=== PATIENT | male | born 1970 | race Caucasian/White ===

== ENCOUNTER 2024-07-24 15:00 | Inpatient (IN) ==
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
[2024-07-24] MEDS ORDERED: fentaNYL citrate PF 100 MCG/2 ML VIAL ONE ×2 (18:40→19:52)
[2024-07-24] MEDS ORDERED: MIDAZOLAM HCL 1 MG/ML 2ML VIAL ONE (18:40)
--- NOTE | 2024-07-24 18:41 | Anesthesiology Consultation ---
Date of Service July 24, 2024 Assessment & Plan Chart Review Chart Review: Acceptable Risk for Surgery Consults Requested none History Surgery Operation Date: 07/24/24 13:50 Proposed Procedures p Right Knee Incision and Debridement - Raman Grady DO Height/Weight Height: 5 ft 10 in Weight: 130 kg Allergies Allergy/AdvReac Type Severity Reaction Status Date / Time pollen extracts Allergy Mild seasonal Verified 07/24/24 17:51 allergies No Known Drug Allergies Allergy Unknown Verified 07/24/24 17:51 Medications Home Medications Medication Instructions Recorded Confirmed Last Taken loratadine 10 mg tablet (Claritin) 10 mg PO DAILY PRN ALLERGY RELIEF 01/21/19 07/24/24 04/14/19 multivitamin 1 tab PO 3XWK 01/21/19 07/24/24 08/15/19 cephalexin 500 mg capsule 500 mg PO Q6H 7 days #28 caps 07/24/24 07/24/24 Unknown sulfamethoxazole 800 1 tab PO BID #14 tabs 07/24/24 07/24/24 Unknown mg-trimethoprim 160 mg tablet (Bactrim DS) NPO Date Last Intake of Fluids: 07/24/24 Time Last Intake of Fluids: 13:00 Date Last Intake of Solids: 07/24/24 Time Last Intake of Solids: 13:00 Past Medical History Medical History Vitamin D deficiency Viral warts Family history of hypertension Environmental allergies Past Family History Family History Father Coronary heart disease Hypertension Stroke Breast cancer Mother Breast cancer Hiatal hernia Other No family history of adverse response to anesthesia Denies family history of Ovarian cancer Prostate cancer Myocardial infarction Colorectal cancer Past Surgical History Surgical History History of tonsillectomy History of nasal septoplasty Social History Smoking Status: Never smoker Do You Dip or Chew Tobacco: No Hx Alcohol Use: Yes Alcohol type: beer and wine alcohol intake frequency: a few times a week Hx Substance Use: No substance use type: does not use Physical Exam Vital Signs Last Vital Signs Temp 37.3 C 07/24/24 17:30 Pulse 72 07/24/24 17:30 Resp 20 07/24/24 17:30 BP 150/96 H 07/24/24 17:30 Pulse Ox 96 07/24/24 17:30 O2 Del Method Room Air 07/24/24 17:30
[2024-07-24] MEDS ORDERED: ATROPINE SULFATE 0.1 MG/ML 10ML SYR IV PRN (18:45)
[2024-07-24] MEDS ORDERED: HYDROmorphone INJ 2 MG/ML SYR/VIAL IV PRN (18:45)
[2024-07-24] MEDS ORDERED: fentaNYL citrate PF 100 MCG/2 ML VIAL IV PRN (18:45)
[2024-07-24] MEDS ORDERED: PROMETHAZINE HCL 6.25 MG in SODIUM CHLORIDE 0.9% 50 ML IV PRN (18:45)
[2024-07-24] MEDS ORDERED: ePHEDrine sulfate 50 MG/ML AMP IV PRN (18:45)
[2024-07-24] MEDS ORDERED: ONDANSETRON INJ 2 MG/ML 2 ML VIAL IV PRN (18:45)
[2024-07-24] MEDS ORDERED: DEXAMETHASONE SOD INJ 4 MG/ML VIAL ONE (19:01)
[2024-07-24] MEDS ORDERED: LIDOCAINE 2% 2 ML VIAL/AMP(20MG/ML) INFIL ONE (19:01)
[2024-07-24] MEDS ORDERED: ROCURONIUM BROMIDE 10 MG/ML 5 ML VIAL IV ONE (19:01)
[2024-07-24] MEDS ORDERED: PROPOFOL IV EMULSION 10 MG/ML 20 ML VIAL IV ONE (19:01)
[2024-07-24] MEDS ORDERED: ONDANSETRON INJ 2 MG/ML 2 ML VIAL ONE (19:01)
[2024-07-24] MEDS ORDERED: PHENYLEPHRINE 100MCG/ML 10ML SYR IV ONE (19:03)
[2024-07-24] MEDS ORDERED: ceFAZolin 330 MG/ML 1 GM VIAL ONE (19:05)
[2024-07-24] MEDS ORDERED: SUGAMMADEX SODIUM 200 MG/2 ML VIAL IV ONE (19:06)
[2024-07-24] MEDS ORDERED: ePHEDrine sulfate 50 MG/5 ML SYR ONE (19:09)
[2024-07-24] MEDS: VANCOMYCIN HCL 1000MG/20ML VIAL ONE (19:52)
[2024-07-24] MEDS ORDERED: KETOROLAC 30 MG/ML VIAL ONE (19:52)
--- NOTE | 2024-07-24 20:23 | Anesthesiology Progress Note ---
Date of Service July 24, 2024 Anesthesia Post Procedure Vital Signs Vital Signs: Temp Pulse Resp BP Pulse Ox O2 Del Method O2 Flow Rate 07/24/24 20:15 66 14 132/87 97 Nasal Cannula 3 07/24/24 20:05 36.1 C L 58 L 13 147/86 H 99 Oxymask 6 07/24/24 17:30 37.3 C 72 20 150/96 H 96 Room Air Transfer of Care Handoff Completed per policy Notes Mental Status: alert / awake / arousable Patient Amnestic to Procedure: Yes Nausea / Vomiting: adequately controlled Pain: adequately controlled Airway Patency, RR, SpO2: stable & adequate BP & HR: stable & adequate Hydration State: stable & adequate Anesthetic Complications: no major complications apparent and Pt Satisfied with anesthetic care
--- NOTE | 2024-07-24 20:29 | Post Operative Brief Note ---
Immediate Post Op Note Date of Surgery July 24, 2024 Pre & Post Diagnosis Operation Date: 07/24/24 13:50 Pre-Op Diagnosis: superficial abscess on the lateral aspect of his right knee Post-Op Diagnosis: superficial abscess on the lateral aspect of his right knee I identified the patient and participated in the time-out.: Yes Procedure Operation Date: 07/24/24 13:50 Actual Procedures p Right Knee Incision and Debridement of superficial abscess (Right) - Raman Grady DO Surgeon Raman Grady DO Research Archaeologist none Estimated Blood Loss 50 Findings See Below Abscess appreciated superficial to the knee joint capsule with no intra- articular extension. Fluids See anesthesia record Specimens Swab, superficial right knee abscess Tissue, superficial right knee abscess Complications None immediately apparent Disposition Accompanied Patient To Recovery: Yes Overlapping Procedure I was present for: the critical portions of procedure. (The entirety of the procedure)
--- NOTE | 2024-07-24 20:32 | Operative Report ---
Post Operative Report Pre & Post Diagnosis Operation Date: 07/24/24 13:50 Pre-Op Diagnosis: Superficial abscess, lateral aspect of right knee Post-Op Diagnosis: Superficial abscess, lateral aspect of right knee I identified the patient and participated in the time-out.: Yes Procedure Operation Date: 07/24/24 13:50 Actual Procedures p Right Knee Incision and Debridement of superficial abscess (Right) - Raman Grady DO Surgeon Raman Grady DO Talent Rep none Estimated Blood Loss 50 Findings See Below The abscess was appreciated superficial to the joint capsule just proximal to the level of Nita's tubercle. It did not extend into the knee joint. There was copious purulence appreciated. Fluids See anesthesia record Specimens 1. Culture swab, superficial abscess right knee 2. Tissue sample, superficial abscess right knee Drains None Complications None immediately apparent Disposition Disposition: Recovery Room Indications This is a pleasant 54-year-old gentleman who presented to clinic this afternoon for evaluation of his right knee. He developed a soft tissue abscess located at the inferolateral aspect of the patella just proximal to the joint line/Nita's tubercle. He saw his primary care provider today who prescribed him antibiotics that he did not take and sent him to our clinic for an urgent evaluation. Upon my evaluation, the patient did not demonstrate any signs of septic arthritis as he had full painless range of motion of the knee. I explained that despite the fact that this does not extend into the joint space, this tissue abscess is concerning due to its proximity to the knee joint. I recommended urgent irrigation and debridement. We elected to proceed to the operating room for a more thorough irrigation and debridement and could be performed in the office setting. I explained to the patient the risks associated with surgery. Specific to the surgery there is the risk of seeding/contaminating the knee joint with infection. I explained him we will take every step to avoid doing this, however if he develops new acute knee pain, we may need to return to the operating room in the future. Additional risks include but are not limited to loss of life/limb, DVT, need for additional surgery, need for soft tissue coverage in the future, continued infection, damage to nerves/blood vessel/tendon/bones. The benefits of the surgery are to potentially clear this infection before exceeds the knee joint. After thorough discussion of the risks and benefits, the patient wished to proceed with surgery. Description of Procedure After informed consent was obtained, the patient was correctly identified in the preoperative holding suite, the operative site was marked with the surgeon's initials, the date, and the word yes. The patient was then taken to the operative suite. The department of anesthesia administered general anesthesia. The patient was transferred from the [facility] to the operative table. All bony prominences were well-padded. Briefing and timeout was performed. All instruments were available and sterile at the time. BRIEFING AND DEBRIEFING: Pre and post operative briefing and debriefing was performed. Introductions were made, goals of the procedure were discussed, questions and concerns were addressed. The operative site markings were identified and appropriate. A time [id number] was performed, the patient's correct identity was confirmed and the correct operative sites were identified. The patients pre-operative antibiotic dosing and administration was confirmed along with other SCIP measures. The team was polled at the completion of the surgery and all team members were in agreement that the procedure was without complication, the counts are correct, the wound class was identified and suggestions for improvement were shared. After the patient was transferred from the [facility] to the operative table, his right lower extremity dressings were removed. We then placed a tourniquet high on the thigh. The right lower extremity was prepped and draped in standard sterile fashion using Betadine scrub and paint. This is due to the open wound. We did not exsanguinate his limb, we elevated the tourniquet to 250 mmHg and left it elevated for 8 minutes. Antibiotics were held until after cultures were collected. I made an incision 5 cm in length across the middle of the superficial abscess. Immediately apparent was significant purulent material. A swab was placed into this abscess and sent for culture. I then collected some of The material as well as surrounding tissue and sent this to the lab for culture as well. Once cultures were collected, the tourniquet was deflated and the department of anesthesia delivered 2g Ancef to the patient. I then proceeded to perform a thorough irrigation and sharp debridement of the devitalized tissue. We irrigated using 9 L of sterile saline under gravity flow through cystoscopy tubing. I performed sharp debridement of all nonviable tissue within this superficial abscess using rongeur, curette, scalpel. I probed this wound thoroughly using both my finger as well as a hemostat. All pockets were opened up such that all of the purulent material could be expressed. During the probing process I was sure to evaluate the integrity of the synovial lining of the knee joint. I did not appreciate any rents in this. After thorough irrigation and debridement, I then placed 0.5 g of vancomycin powder into the wound and then reapproximated the skin edges using 3-0 nylon suture in an interrupted fashion. I did place 2 trauma/retention sutures in order to reapproximate the skin edges of the friable tissue, and the other sutures all were vertical mattress in fashion. I then covered the wound with Betadine soaked Adaptic, fluffs, sterile Webril, and Uday wrap. We placed the knee into a knee immobilizer. The patient tolerated this procedure well and was transferred to the PACU in stable condition. Prior to transportation to PACU, all counts were correct and a briefing was performed at the end of the case. I was present for the procedure Postoperative plan: The patient will be admitted for observation and potentially transitions to an inpatient admission if warranted. The hospitalist team and the infectious disease teams have been consulted. -Weightbearing: Foot flat weightbearing right lower extremity -Immobilization: Knee immobilizer on at all times for soft tissue rest -DVT prophylaxis: Aspirin 81 mg twice daily -Consults: Hospitalist/infectious disease -Activity: Ad janelle./out of bed to chair for all meals -Antibiotics: Broad-spectrum for now, will tailor as appropriate -Follow-up: Pending clinical course, patient will follow-up with me 7 to 10 days -Pain control: Multimodal, okay for NSAIDs I attest to the content of the Intraoperative Record and any orders documented therein. Any exceptions are noted below.
[2024-07-24] MEDS ORDERED: oxyCODONE HCL IR 5 MG TAB (IMMEDIATE RELEASE) PO PRN (21:57)
[2024-07-24] MEDS ORDERED: ACETAMINOPHEN 500 MG TAB PO PRN (22:39)
[2024-07-24] MEDS ORDERED: VANCOMYCIN CONSULT ACTIVE PRN (22:39)
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
[2024-07-24] MEDS ORDERED: VANCOMYCIN HCL 1,000 MG in SODIUM CHLORIDE 0.9% 250 ML IV SCH (22:45)
[2024-07-24] MEDS: CEFEPIME 2000MG 2,000 MG/20 ML SYR IV SCH (23:26)
[2024-07-24] MEDS: DOXYCYCLINE HYCLATE 100 MG in DEXTROSE 5% MINI-B 100 ML IV SCH (23:32)
[2024-07-24 23:34] LABS: Basophils # (auto) 0.02 K/uL (0.00-0.20); Basophils % (auto) 0.3 %; Eosinophils # (auto) 0.07 K/uL (0.00-0.50); Eosinophils % (auto) 1.1 %; Hematocrit (blood only) 41.1 % (42.0-52.0); Hemoglobin 13.6 g/dl (14.0-18.0); Immature Granulocytes # (auto) 0.03 K/uL (0.01-0.20); Immature Granulocytes % (auto) 0.5 %; Lymphocytes # (auto) 0.76 K/uL (1.20-3.40); Lymphocytes % (auto) 11.8 %; Mean Corpuscular Hemoglobin 30.8 pg (25.0-34.0); Mean Corpuscular Hgb Conc 33.1 g/dL (32.0-36.0); Mean Platelet Volume 9.6 fL (9.4-12.4); Monocytes # (auto) 0.11 K/uL (0.11-0.59); Monocytes % (auto) 1.7 %; Neutrophils # (auto) 5.43 K/uL (1.40-6.50); Neutrophils % (auto) 84.6 %; Platelet Count 197 K/uL (130-400); RDW Coefficient of Variation 13.2 % (11.5-14.5); RDW Standard Deviation 44.9 fL (36.4-46.3); Red Blood Count 4.42 M/uL (4.70-6.10); White Blood Count 6.42 K/ul (4.8-10.8)
[2024-07-24] MEDS: VANCOMYCIN HCL 2,500 MG in SODIUM CHLORIDE 0.9% 500 ML IV STA (23:56)
[2024-07-25 00:22] LABS: Albumin Globulin Ratio 1.4 (0.9-2); Albumin Level 3.8 gm/dl (3.4-5.0); BUN Creatinine Ratio 20.6 (10-20); Bilirubin,Total 0.3 mg/dl (0.2-1.0); Calcium 8.9 mg/dl (8.6-10.3); Creatinine Clr Calc Pharmacy 115.2 ml/min; Globulin 2.8 gm/dl (2.5-4.0); Potassium 4.2 mmol/L (3.5-5.1); Total Protein 6.6 gm/dl (6.0-8.3)
--- NOTE | 2024-07-25 08:38 | Orthopedic Progress Note ---
Date of Service July 25, 2024 Assessment & Plan (1) Status post incision and drainage: (2) Abscess of right knee: Plan Patient is doing well postoperative day #1 status post irrigation and debridement of the right lower extremity. As detailed in the operative note, the abscess was quite localized and appeared to be extra-articular in nature. Cultures were obtained in the operating room and these are still pending at this time. I did order an ESR/CRP to be drawn this morning. We will trend these moving forward. Hospitalist consulted and their recommendations are appreciated. Patiently currently on broad-spectrum antibiotics. Infectious disease consult has been placed. Patient can foot flat weight-bear for stability. His knee immobilizer should be on at all times to allow soft tissue rest. He should be out of bed to chair 3 times daily for all meals Admission and Anticipated Discharge Date Admission Date: July 24, 2024 Subjective Patient is postoperative day #1 status post irrigation and debridement of right knee superficial abscess. His pain is well-controlled. He is resting comfortably in his knee immobilizer. No acute events overnight. Physical Exam Physical Exam: Right lower extremity dressing clean dry and intact. Knee immobilizer in place. Sensation intact to light touch throughout the right lower extremity. EHL, FHL, GSC, TA motor intact Results & Data Vital Signs (Past 12 Hours) Vital Signs Temp Pulse Resp BP Pulse Ox O2 Del Method O2 Flow Rate 07/25/24 07:58 36.5 C 73 18 120/77 96 Room Air 07/25/24 04:40 36.4 C L 54 L 16 112/65 92 Room Air 07/24/24 23:42 36.6 C 65 16 127/88 93 Room Air 07/24/24 23:13 36.8 C 66 16 119/79 94 Room Air 07/24/24 22:15 36.9 C 67 18 129/84 92 Room Air 07/24/24 21:45 36.6 C 16 119/72 95 Room Air 07/24/24 21:15 58 L 20 115/75 96 Nasal Cannula 2 07/24/24 21:00 57 L 20 119/76 95 Nasal Cannula 2 07/24/24 20:45 36.7 C 65 18 104/85 96 Nasal Cannula 2 Laboratory Results Cultures from the operating room are still pending ESR/CRP ordered this morning
[2024-07-25 08:42] LABS: Creatinine Clr Calc Pharmacy 136.3 ml/min
[2024-07-25] MEDS: VANCOMYCIN HCL 1,500 MG in SODIUM CHLORIDE 0.9% 500 ML IV SCH (09:59)
[2024-07-25] MEDS ORDERED: VANCOMYCIN HCL 1,250 MG in SODIUM CHLORIDE 0.9% 250 ML IV SCH (10:00)
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
--- NOTE | 2024-07-25 14:22 | Pharmacy Report ---
Pharmacy PK ABX Note - Date of Service July 25, 2024 - Assessment and Plan Assessment * 54 year old M receiving Vancomycin, Doxycycline, and cefepime for treatment of an infection of the right knee. Postoperative day #1 for irrigation and debridement of the right lower extremity. * Pertinent microbiologic data includes: Negative MRSA Nasal Swab, knee cultures from 07/23 and 07/24 are growing Staph spp (prelim). Will continue to follow for final culture results. * ID has been consulted. Day # 2 of antimicrobial therapy. Plan Vancomycin * Loading dose: 2500 mg IV x 1 * Maintenance dose: 1500 mg IV every 12 hours * Regimen is predicted to achieve target AUC/PAULO of 400-600 mg/L.hr * Random level ordered for: 07/27/24 with AM labs. Doxycycline * 100mg iv q 12 hours Cefepime * 2000mg iv q 8 hours Pharmacy will continue to follow and will adjust dose/frequency as necessary. Thank you. Pharmacy has transitioned to AUC monitoring for vancomycin. AUC/PAULO is the preferred PK/PD target and is associated with decreased risk of nephrotoxicity compared to traditional trough targets.
--- NOTE | 2024-07-25 14:24 | Hospitalist Consultation ---
Date of Consultation July 25, 2024 Assessment & Plan (1) Status post incision and drainage: (2) Skin infection of right knee: (3) Hyperlipidemia: (4) Allergic rhinitis: Plan Keyshawn is a 54 M w/ PMH of HLD not on medical management who is admitted following right knee incision and drainage procedure 07/24. POD #1 s/p Incision and Drainage Skin Infection of R Knee - Abrasion sustained ~ 10 days ago, followed by erythema, edema, and serosanguineous drainage - S/p incision and drainage w/ Dr. Grady 07/24 w/ washout and cultures obtained - Started on broad spectrum antibiotics (vancomycin, doxycline, cefepime) - MRSA nares negative; prelim wound culture growing Staph species Recommend stopping Vanco & Cefepime Continue doxycycline 100 mg IV q12h Transition to targeted regimen w oral abx, based on culture sensitivities - Hemodynamically stable and afebrile - Follow CBC/CMP - Pain Mgmt w/ Tylenol and Oxycodone - Orthopedics following - Infectious Disease consulted, appreciate recommendations Chronic Conditions: - HLD: no home medications - Allergies: ceterizine PRN Diet: Regular Code: Full DVT: SCDs Dispo: Med/Surg Supervising Physician Co-Signing Physician Notes I personally examined the patient and verified all casarez points of history and exam, discussed case, and agree with decision making with Dr Vee feeling ok pain controlled vitals noted nad heent nc at mmm knee in dressing knee infection - cx showing gram (+) cocci, anticipate staph. awaiting sensitivities, agree highly likely ok for home on PO abx. DVT proph - lovenox History of Present Illness Reason for Consultation: Post-Operative Care Requesting Physician: Raman Grady DO Attending Physician: Mamadou Pink DO History of Present Illness Patient is feeling well today. Reports pain is well-controlled, though he finds the leg brace /immobilizer uncomfortable. Able to eat & drink w/ no issues. Denies SAUCEDO, SOB, CP, n/v, abd pain. Allergies Allergy/AdvReac Type Severity Reaction Status Date / Time pollen extracts Allergy Mild seasonal Verified 07/24/24 17:51 allergies No Known Drug Allergies Allergy Unknown Verified 07/24/24 17:51 Home Medications Medication Instructions Recorded Confirmed Type loratadine 10 mg tablet (Claritin) 10 mg PO DAILY PRN ALLERGY RELIEF 01/21/19 07/24/24 History multivitamin 1 tab PO 3XWK 01/21/19 07/24/24 History cephalexin 500 mg capsule 500 mg PO Q6H 7 days #28 caps 07/24/24 07/24/24 Rx sulfamethoxazole 800 1 tab PO BID #14 tabs 07/24/24 07/24/24 Rx mg-trimethoprim 160 mg tablet (Bactrim DS) Patient History Medical History Vitamin D deficiency Viral warts Family history of hypertension Environmental allergies Surgical History History of tonsillectomy History of nasal septoplasty Family History Father Coronary heart disease Hypertension Stroke Breast cancer Mother Breast cancer Hiatal hernia Other No family history of adverse response to anesthesia Denies family history of Ovarian cancer Prostate cancer Myocardial infarction Colorectal cancer Social History Smoking Status: Never smoker Second Hand Exposure: Yes (parents smoked); Do You Dip or Chew Tobacco: No; Hx Alcohol Use: Yes Alcohol type: beer and wine Hx Substance Use: No Preferred Language: Divehi Communication Ability: Effective Staff Radiologist Required: No Beliefs That Will Affect Care: None Current Living Situation: Spouse Feels Safe at Home: Yes Assistive Devices: None Physical Exam 2 Physical Exam: Gen: NAD, alert, interactive HEENT: Supple, no LAD Resp:Non-labored, no wheezing/rhonchi/rales, CTAB CV:RRR, normal S1/S2, no M/R/G Abd: Soft, non-distended, no TTP, normoactive bowels, no masses Extr: 2+ dp bilaterally - RLE w/ surigcal bandage and post-op br roland intact Skin: No rashes lesions or erythema Results & Data Results & Data Vital Signs (Past 12 Hours) Vital Signs Temp Pulse Resp BP Pulse Ox O2 Del Method 07/25/24 07:58 36.5 C 73 18 120/77 96 Room Air 07/25/24 04:40 36.4 C L 54 L 16 112/65 92 Room Air Laboratory Results 07/24/24 23:22 07/25/24 08:02 Resident Activity Tracking Resident Involvement: Resident Care Provided Care Provided: Adult Hospital Medicine
--- NOTE | 2024-07-25 19:08 | Billing Data ---
Date of Service July 25, 2024 Coding Level of Care Code 57382 SUB INP/OBS CARE
--- NOTE | 2024-07-25 23:12 | Billing Data ---
Date of Service July 25, 2024 Coding Level of Care Code 41121 IN/OBS CONSULT LVL 3,45M
[2024-07-26 07:33] VITALS: RESP 16
--- NOTE | 2024-07-26 07:46 | Orthopedic Progress Note ---
Date of Service July 26, 2024 Assessment & Plan (1) Status post incision and drainage: (2) Abscess of right knee: Plan Patient is doing well postoperative day #2 status post irrigation and debridement of the right lower extremity. As detailed in the operative note, the abscess was quite localized and appeared to be extra-articular in nature. Cultures were obtained in the operating room and these are still growing staph species at this time. I did order an ESR/CRP to be drawn this morning to compare to yesterday's results. We will continue to trend these while he is admitted . Hospitalist consulted and their recommendations are appreciated. Patiently currently on broad-spectrum antibiotics. Infectious disease consulted and their recommendations are appreciated as well. Patient can foot flat weight-bear for stability. His knee immobilizer should be on at all times to allow soft tissue rest. He should be out of bed to chair 3 times daily for all meals Admission and Anticipated Discharge Date Admission Date: July 25, 2024 Subjective Patient is postoperative day #2 status post irrigation and debridement of right knee superficial abscess. His pain is well-controlled. He is resting comfortably in his knee immobilizer. No acute events overnight. Physical Exam Physical Exam: Right lower extremity dressing clean dry and intact. Knee immobilizer in place. Sensation intact to light touch throughout the right lower extremity. EHL, FHL, GSC, TA motor intact Results & Data Vital Signs (Past 12 Hours) Vital Signs Temp Pulse Resp BP Pulse Ox O2 Del Method 07/26/24 07:32 36.6 C 61 16 131/76 94 Room Air Laboratory Results Preliminary cultures demonstrate Staphylococcus species. ESR (07/25/2024) -18 mm/h CRP (07/25/2024) - 0.79 mg/dL
[2024-07-26 08:06] LABS: C Reactive Protein < 0.50 mg/dl (0-0.5)
[2024-07-26] MEDS: ENOXAPARIN INJ 40 MG/0.4 ML SYR SQ SCH (08:14)
--- NOTE | 2024-07-26 09:02 | Hospitalist Progress Note ---
Date of Service July 26, 2024 Assessment & Plan (1) Status post incision and drainage: (2) Hyperlipidemia: (3) Allergic rhinitis: Plan Keyshawn is a 54 M w/ PMH of HLD not on medical management who is admitted following right knee incision and drainage procedure 07/24. POD #2 s/p Incision and Drainage Skin Infection of R Knee - Abrasion sustained ~ 10 days ago, followed by erythema, edema, and serosanguineous drainage - S/p incision and drainage w/ Dr. Grady 07/24 w/ washout and cultures obtained - Started on broad spectrum antibiotics (vancomycin, doxycline, cefepime) - Wound culture growing Staph Aureus, resistant to erythromycin Recommend stopping Vanco, Cefepime Can transition continue Doxycycline 100 mg BID for 7 to 10 days or transition to a beta lactams such as Dicloxacillin 500 QID for 7 to 10 days - Hemodynamically stable and afebrile - Pain Mgmt w/ Tylenol and Oxycodone - Orthopedics following - Infectious Disease consulted, appreciate recommendations Patient medically stable, Medicine will sign out at this time. Don't hesitate to reach out with questions or concerns. Chronic Conditions: - HLD: no home medications - Allergies: ceterizine PRN Diet: Regular Code: Full DVT: SCDs Dispo: Med/Surg Admission and Anticipated Discharge Date Admission Date: July 25, 2024 Supervising Physician Co-Signing Physician Notes I personally examined the patient and verified all casarez points of history and exam, discussed case, and agree with decision making with Dr Nik Valdivia feeling ok pain controlled would like to go home vitals noted nad heent nc at mmm breathing unlabored no accessory muscles good effort skin no rashes no pallor or icterus knee infection - cx showing staph, sensitive to all but erythromycin. d/w ortho from my standpoint stable for home, dicloxacillin if concern on ongoing infection, doxy if surgery truly affected source control and abx are more secondary risk reduction than ongoing treatment of active infection DVT proph - lovenox Subjective Seen this morning. Refers doing ok. Wanted to go home today. Denied any chets pain, SOB, abdominal pain or any other symtoms Review of Systems Review of Systems: as per HPI Physical Exam Constitutional: WD/WN, vitals as above Respiratory: normal respiratory effort, lungs clear to auscultation Cardiovascular: RRR, no murmur, no edema Results & Data Results & Data Vital Signs (Past 12 Hours) Vital Signs Temp Pulse Resp BP Pulse Ox O2 Del Method 07/26/24 08:19 Room Air 07/26/24 07:32 36.6 C 61 16 131/76 94 Room Air Resident Activity Tracking Resident Involvement: Resident Care Provided Care Provided: Adult Hospital Medicine
--- NOTE | 2024-07-26 10:07 | Billing Data ---
Date of Service July 26, 2024 Coding Level of Care Code 45480 SUB INP/OBS CARE
[2024-07-26 20:35] VITALS: O2SAT 96
[2024-07-27 07:28] VITALS: BP 148/92; TEMP 97.9
[2024-07-27 07:44] LABS: Creatinine Clr Calc Pharmacy 155.2 ml/min
--- NOTE | 2024-07-27 08:58 | Orthopedic Progress Note ---
Date of Service July 27, 2024 Assessment & Plan (1) Status post incision and drainage: (2) Abscess of right knee: Plan Patient is doing well postoperative day #3 status post irrigation and debridement of the right lower extremity. As detailed in the operative note, the abscess was quite localized and appeared to be extra-articular in nature. Cultures were obtained in the operating room and these are growing staph species at this time, but have not been finalized. Hospitalist consulted and their recommendations are appreciated. Patiently currently on broad-spectrum antibiotics. Infectious disease consulted and their recommendations are appreciated as well. Patient can foot flat weight-bear for stability. His knee immobilizer should be on at all times to allow soft tissue rest. He should be out of bed to chair 3 times daily for all meals Patient notes this morning that he does not wish to stay overnight again. We discussed that my recommendation is for him to wait until all cultures are finalized, but he states that he has to go home. I did discuss with infectious disease and they would recommend Bactrim double strength 2 pills p.o. twice daily until 08/07/2024. After discussion with the patient, he is willing to stay in the hospital until he receives his afternoon dose of cefepime. This would give him gram-negative coverage until tomorrow. We will continue to watch the culture results until they are finalized and may change his antibiotics as an outpatient if needed. Otherwise, the patient wishes to leave today and he will be discharged home on Bactrim. He will follow-up with me in clinic on 07/30/2024 Admission and Anticipated Discharge Date Admission Date: July 25, 2024 Subjective Patient seen and evaluated this morning. Relates that he really wants to leave the hospital today. Notes no acute issues. Pain is well-controlled. Physical Exam Physical Exam: Right lower extremity dressing clean dry and intact. Knee immobilizer in place. Sensation intact to light touch throughout the right lower extremity. EHL, FHL, GSC, TA motor intact Results & Data Vital Signs (Past 12 Hours) Vital Signs Temp Pulse Resp BP Pulse Ox O2 Del Method 07/27/24 07:27 36.6 C 70 16 148/92 H 96 Room Air
[2024-07-27 11:37] VITALS: PULSE 62
== END 2024-07-27 13:11 | disposition home or self-care (01) | DRG 572 ==
LOC: ASU 15:00 → 3W 15:00